=== PATIENT | male | born 1940 | race Caucasian/White ===

== ENCOUNTER 2016-10-25 10:31 | Inpatient (IN) ==
--- NOTE | 2016-10-25 12:25 | EKG Report ---
Test Performed on : 10/25/2016 12:12:48 PM Test Reason : acute bronchitis, copd Blood Pressure : / mmHG Vent. Rate : 052 BPM Atrial Rate : 052 BPM P-R Int : 196 ms QRS Dur : 154 ms QT Int : 504 ms P-R-T Axes : 077 -47 089 degrees QTc Int : 468 ms Sinus bradycardia. Left axis deviation Left bundle branch block Abnormal ECG When compared with ECG of 29-APR-2015 17:23, Vent. rate has decreased BY 36 BPM T wave inversion no longer evident in Lateral leads Confirmed by Don OLIVAS, Stas Michael ([id number]) on 10/26/2016 9:40:34 PM
[2016-10-25 12:37] LABS: MANUAL DIFF NEEDED? NO
[2016-10-25 12:40] LABS: ALLEN TEST YES; BE -2.2 mmoll (-3.0-3.0); BLOOD TYPE ARTERIAL; DRAW SITE R RADIAL; METHB 1.7 % (0.0-1.5); PCO2(98.6) 41 mmHg (35-45); PO2(98.6) 78 mmHg (60-100); SAMPLE BLOOD; SAO2 97.9 % (95.0-100.0); THB 15.1 g/dL (11.5-17.4); pH(98.6) 7.36 (7.35-7.45)
[2016-10-25 12:41] LABS: MODALITY ROOM AIR
--- NOTE | 2016-10-25 12:49 | Diag Imaging Result Document ---
PROCEDURE NAME: CHEST-2 VIEWS - 10/25/2016 CHEST X-RAY, 2 VIEWS: COMPARISON: 04/29/2015. FINDINGS: There is grossly stable bibasilar linear atelectasis most notably in the middle lobe and lingula. Lungs are hyperexpanded suggesting COPD. No new or focal infiltrates. No pneumothorax or pleural effusion. Heart size is normal. IMPRESSION: Stable COPD and stable linear atelectasis or scarring in the lung bases.
[2016-10-25 12:51] LABS: EOS# 0.28 X1000 (0.0-0.7); EOS% 4.5 % (0.0-10.0); HEMATOCRIT 44.1 % (42.0-52.0); HEMOGLOBIN 14.8 g/dL (14.0-18.0); LYMPH# 2.18 X1000 (1.2-3.4); LYMPH% 34.8 % (20.5-51.1); MCH 30.3 PG (27-31); MCHC 33.6 g/dL (33-37); MCV 90.2 FL (81-99); MONO# 0.57 X1000 (0.11-0.59); MONO% 9.1 % (1.7-9.3); MPV 11.1 FL (7.4-10.4); NEUT% 50.6 % (42.2-75.2); PLT 247 X1000 (130-400); RBC 4.89 XMIL (4.7-6.1)
[2016-10-25] MEDS ORDERED: ZYLOPRIM PO SCH (13:00)
[2016-10-25 13:14] LABS: AGAP 13; ALKALINE PHOSPHATASE 64 U/L (32-122); BUN 18 mg/dL (8-22); CALCIUM 9.1 mg/dL (8.8-10.2); CHLORIDE 102 mmol/L (98-107); COSMO 279; GOT 19 U/L (10-34); GPT 11 U/L (10-44); POTASSIUM 3.5 mmol/L (3.5-5.1); SODIUM 138 mmol/L (136-145); TCO2 23 mmol/L (25-35); TOTAL BILIRUBIN 0.63 mg/dL (0.20-1.00); TOTAL PROTEIN 7.2 g/dL (6.3-8.3)
[2016-10-25] MEDS: ROCEPHIN 1 GM/NS 1 GM/50 ML IVPB IV SCH (13:26)
[2016-10-25] MEDS ORDERED: NITROGLYCERIN SL PRN (17:37)
--- NOTE | 2016-10-25 18:30 | HISTORY AND PHYSICAL ---
HISTORY OF PRESENT ILLNESS: Mr. Morel, who is a 76-year-old white gentleman, a known case of COPD, hypertension, and angina, has been getting shortness of breath. He has cough with expectoration. He has COPD and was treated for acute exacerbation as an outpatient. He did not improve, and we decided to put him in the hospital. PERSONAL/PAST/FAMILY HISTORY: Other details of personal, past, and family history are noncontributory. SOCIAL HISTORY: He is a nonsmoker. He does not drink. ALLERGIES: He is allergic to antihistamines, codeine. He says his pressure goes up with steroids, and he gets very shaky with albuterol. MEDICATIONS: Include Naprosyn 350 mg b.i.d., tamsulosin at bedtime, ramipril 10 mg b.i.d., propranolol 10 mg b.i.d., MiraLAX daily, omeprazole 20 mg daily, omega-3 fatty acids, nitroglycerin p.r.n. PAST SURGICAL HISTORY: Reveals history of right inguinal hernia surgery, cholecystectomy, and 1 stent placed after he had an acute [place]. REVIEW OF SYSTEMS: Other than generalized weakness, cough with expectoration, and increasing shortness of breath, it is negative. PHYSICAL EXAMINATION: VITAL SIGNS: Reveal temperature normal, pulse 58, respiratory rate 22 per minute, blood pressure 123/71. HEENT AND NECK: Head normocephalic. Pupils PERRLA. Fundus examination not done. The neck is supple. JVP normal. ENT examination unremarkable. There is no evidence of lymphadenopathy, thyroid enlargement. EXTREMITIES: There is no evidence of pedal edema, calf tenderness, anemia, cyanosis, or clubbing. Pedal pulses are felt. BREASTS: Exam normal. CHEST: Normal inspection. LUNGS: Clear on auscultation with expiratory wheezing bilaterally. CARDIAC: PMI in the normal position. Heart sounds normal. No murmur, gallop or rub noted. ABDOMEN: Nondistended. Hernial orifices normal. No guarding, rigidity, free fluid, masses, or organomegaly. Bowel sounds normal. RECTAL: Exam deferred. CENTRAL NERVOUS SYSTEM: Higher functions normal. Cranial nerves normal. Motor and sensory system examination unremarkable. Deep tendon reflexes normal. Plantars downgoing. Skull and spine examination normal for age. No cerebellar signs or signs of meningeal irritation. LOCOMOTOR: Exam unremarkable. SKIN: Exam unremarkable. CLINICAL IMPRESSION: 1. Acute bronchitis. 2. Chronic obstructive pulmonary disease with acute exacerbation. The patient not responding to outpatient therapy. PLAN: To start IV Solu-Medrol low dose, as he is sensitive, and Rocephin, as well as Spiriva treatment. cc: Dhaval Donis MD
[2016-10-25] MEDS: SOLU-MEDROL IV SCH (18:43)
[2016-10-25] MEDS: ALTACE PO SCH (20:02)
[2016-10-25] MEDS: NAPROSYN PO SCH (20:02)
[2016-10-25] MEDS: INDERAL PO SCH (20:02)
[2016-10-25] MEDS: ATIVAN PO SCH (20:02)
[2016-10-25] MEDS: ARICEPT PO SCH (21:41)
[2016-10-25] MEDS: PROSCAR PO SCH (21:41)
[2016-10-26] MEDS: SOLU-MEDROL IV SCH ×2 (05:47→20:24)
[2016-10-26] MEDS: ALTACE PO SCH ×2 (08:53→20:17)
[2016-10-26] MEDS: MIRALAX PO SCH (08:53)
[2016-10-26] MEDS: PRILOSEC PO SCH (08:54)
[2016-10-26] MEDS: ATIVAN PO SCH ×2 (08:54→20:17)
[2016-10-26] MEDS: NAPROSYN PO SCH ×2 (08:54→20:16)
[2016-10-26] MEDS: FISH OIL CONCENTRATE PO SCH (08:54)
[2016-10-26] MEDS: NORVASC PO SCH (08:54)
[2016-10-26] MEDS: INDERAL PO SCH ×2 (08:54→20:16)
[2016-10-26] MEDS: FLOMAX PO SCH (08:55)
[2016-10-26] MEDS ORDERED: SPIRIVA INH SCH (09:00)
[2016-10-26] MEDS ORDERED: EPA PO SCH (09:00)
[2016-10-26] MEDS ORDERED: DHA PO SCH (09:00)
[2016-10-26] MEDS ORDERED: CASEI PO SCH (09:00)
[2016-10-26] MEDS ORDERED: FISH OIL PO SCH (09:00)
[2016-10-26] MEDS ORDERED: [UNRECOGNIZED DRUG - OTHER] PO SCH (09:00)
[2016-10-26] MEDS: SPIRIVA INH SCH (10:45)
--- NOTE | 2016-10-26 12:01 | PROGRESS NOTE ---
DATE: 10/26/2016 Mr. Morel is doing better. He is on IV Rocephin, as well as low dose of Solu-Medrol. He has dementia. Overall condition is unchanged. We will continue with the current management. -5 cc: Dhaval Donis MD
[2016-10-26] MEDS: ROCEPHIN 1 GM/NS 1 GM/50 ML IVPB IV SCH (12:35)
[2016-10-26] MEDS: ARICEPT PO SCH (20:17)
[2016-10-26] MEDS: PROSCAR PO SCH (20:17)
[2016-10-27] MEDS: SPIRIVA INH SCH (08:18)
[2016-10-27] MEDS: NAPROSYN PO SCH ×2 (10:00→20:31)
[2016-10-27] MEDS: ALTACE PO SCH ×2 (10:00→20:32)
[2016-10-27] MEDS: MIRALAX PO SCH (10:00)
[2016-10-27] MEDS: SOLU-MEDROL IV SCH ×2 (10:00→20:32)
[2016-10-27] MEDS: NORVASC PO SCH (10:00)
[2016-10-27] MEDS: FISH OIL CONCENTRATE PO SCH (10:00)
[2016-10-27] MEDS: INDERAL PO SCH ×2 (10:00→20:31)
[2016-10-27] MEDS: ATIVAN PO SCH ×2 (10:00→20:32)
[2016-10-27] MEDS: PRILOSEC PO SCH (10:01)
[2016-10-27] MEDS: FLOMAX PO SCH (10:02)
--- NOTE | 2016-10-27 11:41 | PROGRESS NOTE ---
DATE: 10/27/2016 SUBJECTIVE: The patient says he is feeling a little bit better. His belly has hurt a little bit. This may be from his coughing and breathing fast previously. OBJECTIVE: Vital Signs: Temperature is 97.7 degrees Fahrenheit. Blood pressure is 140/63, respirations 20, pulse 65. HEENT: Normocephalic. EOMs intact. PERRLA. Throat clear. Lungs: Have a few rales and wheezes especially in the right upper lobe. Heart: Regular rate and rhythm without murmurs, gallops, or friction rubs. Abdomen: Soft. Active bowel sounds. No organomegaly or tenderness at this point. Neurological: Cranial nerves 2-12 intact grossly. Sensory and motor intact. ASSESSMENT: Chronic obstructive pulmonary disease exacerbation. PLAN: Continue treatments. cc: MD Dhaval Hernandez Jr, MD
[2016-10-27] MEDS: ROCEPHIN 1 GM/NS 1 GM/50 ML IVPB IV SCH (13:36)
[2016-10-27] MEDS: PROSCAR PO SCH (20:32)
[2016-10-27] MEDS: ARICEPT PO SCH (20:32)
[2016-10-28 07:22] LABS: HEMOGLOBIN 13.7 g/dL (14.0-18.0); IMM GRAN# 0.04 X1000 (0.0-0.04); IMM GRAN% 0.3 % (0.0-0.5); LYMPH# 1.33 X1000 (1.2-3.4); LYMPH% 9.8 % (20.5-51.1); MANUAL DIFF NEEDED? YES; MCH 31.1 PG (27-31); MCHC 35.1 g/dL (33-37); MCV 88.4 FL (81-99); MONO# 0.58 X1000 (0.11-0.59); MONO% 4.3 % (1.7-9.3); NEUT% 85.6 % (42.2-75.2); PLT 242 X1000 (130-400); RBC 4.41 XMIL (4.7-6.1)
[2016-10-28 07:40] LABS: AGAP 12; BUN 25 mg/dL (8-22); CHLORIDE 102 mmol/L (98-107); COSMO 283; POTASSIUM 3.7 mmol/L (3.5-5.1); SODIUM 138 mmol/L (136-145); TCO2 24 mmol/L (25-35)
[2016-10-28 08:09] LABS: LYMPHS 18 % (21-51)
[2016-10-28] MEDS: MIRALAX PO SCH (08:40)
[2016-10-28] MEDS: PRILOSEC PO SCH (08:41)
[2016-10-28] MEDS: ALTACE PO SCH ×2 (08:41→20:45)
[2016-10-28] MEDS: FISH OIL CONCENTRATE PO SCH (08:41)
[2016-10-28] MEDS: ATIVAN PO SCH ×2 (08:41→20:53)
[2016-10-28] MEDS: NORVASC PO SCH (08:42)
[2016-10-28] MEDS: SOLU-MEDROL IV SCH ×2 (08:42→20:45)
[2016-10-28] MEDS: INDERAL PO SCH ×2 (08:42→20:45)
[2016-10-28] MEDS: FLOMAX PO SCH (08:43)
[2016-10-28] MEDS: NAPROSYN PO SCH ×3 (08:44→21:01)
[2016-10-28] MEDS: SPIRIVA INH SCH (09:28)
--- NOTE | 2016-10-28 13:12 | PROGRESS NOTE ---
DATE: 10/28/2016 SUBJECTIVE: The patient says he is feeling better. He is not coughing as much. He is breathing better. OBJECTIVE: Vital signs: Blood pressure 143/54, respirations are 20 a minute, pulse 56 and regular, temp 97.8 degrees Fahrenheit, O2 saturation is 96%. HEENT: Normocephalic. EOMs intact. PERRLA. Throat clear. Lungs: Sound fairly clear to auscultation and percussion without rhonchi, rales, or wheezes at this time. Heart: Regular rate and rhythm without murmurs, gallops, or friction rubs. Abdomen: Soft. Active bowel sounds. No organomegaly or tenderness. Neurological: Intact grossly. We will get patient up and walking and see what he can do. ASSESSMENT: Chronic obstructive pulmonary disease exacerbation. PLAN: As above. cc: MD Dhaval Hernandez Jr, MD
[2016-10-28] MEDS: ROCEPHIN 1 GM/NS 1 GM/50 ML IVPB IV SCH (15:04)
[2016-10-28] MEDS: ARICEPT PO SCH (20:45)
[2016-10-28] MEDS: PROSCAR PO SCH (20:46)
[2016-10-29 06:02] LABS: MANUAL DIFF NEEDED? NO
[2016-10-29 06:08] LABS: HEMATOCRIT 38.5 % (42.0-52.0); HEMOGLOBIN 13.4 g/dL (14.0-18.0); IMM GRAN# 0.06 X1000 (0.0-0.04); IMM GRAN% 0.5 % (0.0-0.5); LYMPH# 1.28 X1000 (1.2-3.4); LYMPH% 11.7 % (20.5-51.1); MCH 30.7 PG (27-31); MCHC 34.8 g/dL (33-37); MCV 88.3 FL (81-99); MONO# 0.58 X1000 (0.11-0.59); MONO% 5.3 % (1.7-9.3); MPV 11.4 FL (7.4-10.4); NEUT% 82.5 % (42.2-75.2); PLT 252 X1000 (130-400); RBC 4.36 XMIL (4.7-6.1)
[2016-10-29 06:22] LABS: AGAP 15; BUN 27 mg/dL (8-22); CALCIUM 9.2 mg/dL (8.8-10.2); CHLORIDE 102 mmol/L (98-107); COSMO 291; POTASSIUM 3.8 mmol/L (3.5-5.1); SODIUM 141 mmol/L (136-145); TCO2 24 mmol/L (25-35)
[2016-10-29 08:22] VITALS: BP 131/60
[2016-10-29] MEDS: SPIRIVA INH SCH (08:25)
[2016-10-29] MEDS: MIRALAX PO SCH (09:02)
[2016-10-29] MEDS: INDERAL PO SCH (09:02)
[2016-10-29] MEDS: ATIVAN PO SCH (09:02)
[2016-10-29] MEDS: NORVASC PO SCH (09:03)
[2016-10-29] MEDS: PRILOSEC PO SCH (09:03)
[2016-10-29] MEDS: SOLU-MEDROL IV SCH (09:03)
[2016-10-29] MEDS: ALTACE PO SCH (09:03)
[2016-10-29] MEDS: FISH OIL CONCENTRATE PO SCH (09:04)
[2016-10-29] MEDS: FLOMAX PO SCH (09:50)
[2016-10-29] MEDS: NAPROSYN PO SCH (09:51)
--- NOTE | 2016-10-30 09:22 | DISCHARGE SUMMARY ---
ADMISSION DATE: 10/25/2016 DISCHARGE DATE: 10/29/2016 HISTORY OF PRESENT ILLNESS: Mr. Morel is a 76-year-old, white gentleman with a known case of COPD who was admitted with shortness of breath. He had acute exacerbation. LABORATORY DATA: In the hospital, CBC initially was normal. However, white count went up. Today, the white count has come down now. Blood gases show pH of 7.36, pCO2 41, PO2 was 78. Chemistry profile was negative except for slight elevation in the BUN. Glucose was 182, probably on account of the steroid therapy. Total calcium was normal. COURSE IN THE HOSPITAL: He was given IV Solu-Medrol and low-dose IV Rocephin was given. Spiriva was started. I will give him samples of Spiriva from in the office. He will be seen in the office in about 7 days. FINAL DIAGNOSES: 1. Chronic obstructive pulmonary disease with acute exacerbation. 2. Ischemic heart disease. 3. Hypertension. 4. Alzheimer's dementia. cc: Dhaval Donis MD
== END 2016-10-29 10:16 | disposition home or self-care (01) ==
LOC: DIRADM 10:31 → 3N 10:32
PROVIDERS: ADMIT Internal Medicine; ATTEND Internal Medicine